=== PATIENT | male | born 1960 | race African-American/Black ===

== ENCOUNTER 2019-08-06 17:13 | Inpatient (IN) | payer OTHER ==
[~2019-08-06] VITALS: Ht 180.3 cm; Wt 107.0 kg
--- NOTE | 2019-08-06 17:20 | NUR ---
BIBA RA 87 "Was taking ride on [employer] and Sponge Maker witnessed full blown Seizure. Patient a/ox1-2, still disoriented at this time, needs attended, kept comfortable, seizure precaution.
[2019-08-06 17:52] LABS: BASOPHILS # (AUTO) 0.1 /CMM (0.0-0.2); BASOPHILS % (AUTO) 1.5 % (0.0-2.0); EOSINOPHILS % (AUTO) 3.2 % (0.0-6.0); HEMATOCRIT 43 % (39-51); HEMOGLOBIN 14.4 g/dL (13.5-17.5); LYMPHOCYTES % (AUTO) 44.5 % (20.0-44.0); MEAN CORPUSCULAR HGB CONC 34 g/dl (31.0-36.0); MEAN CORPUSCULAR VOLUME 89 fL (80-96); MONOCYTES # (AUTO) 0.4 /CMM (0.1-1.30); MONOCYTES % (AUTO) 6.2 % (2.0-12.0); NEUTROPHILS % (AUTO) 44.6 % (43.0-81.0); PLATELET COUNT (AUTO) 207 /CMM (150-450); RED BLOOD CELL COUNT(AUTO) 4.82 MIL/uL (4.5-6.0); WHITE BLOOD COUNT (AUTO) 6.8 K/uL (4.3-11.0)
[2019-08-06 18:25] LABS: PHENYTOIN (DILANTIN) 0.6 ug/ml (10.0-20.0)
[2019-08-06 18:34] LABS: ALANINE AMINOTRANSFERASE 39 U/L (12-78); ALBUMIN 3.6 g/dL (3.4-5.0); ALKALINE PHOSPHATASE 115 U/L (46-116); ASPARTATE AMINOTRANSFERASE 15 U/L (15-37); BILIRUBIN,DIRECT 0.1 mg/dL (0.0-0.2); BILIRUBIN,TOTAL 0.4 mg/dL (0.2-1.0); CARBON DIOXIDE 26 mmol/L (21-32); CHLORIDE 98 mmol/L (98-107); CREATININE 1.5 mg/dL (0.6-1.3); POTASSIUM 3.7 mmol/L (3.5-5.1); SODIUM SERUM 135 mmol/L (136-145); TOTAL PROTEIN, SERUM 7.5 g/dL (6.4-8.2); UREA NITROGEN, BLOOD 17 mg/dL (7-18)
[2019-08-06] MEDS ORDERED: LORAZEPAM INJ 2 MG/ML VIAL ONE (18:34)
--- NOTE | 2019-08-06 18:36 | NUR ---
patient had an approximately 55 seconds of tonic clonic seizure. Patient placed on o2 via mask. Dr. Carlos made aware, received an order for Ativan 2mg IV x1 now and carried out.
[2019-08-06 18:38] LABS: GLUCOSE 630 mg/dL (74-106)
[2019-08-06 18:39] LABS: ALCOHOL, BLOOD < 3 mg/dL (0-0)
--- NOTE | 2019-08-06 18:45 | NUR ---
Patient asleep at this time, kept comfortable, vss, on o2 at 2lpm via nc. Seizure precautions in placed.
[2019-08-06] MEDS ORDERED: phenytoin SODIUM IV 1,000 MG in IV NS 0.9% 100 ML IV ONE (19:00)
[2019-08-06] MEDS ORDERED: INSULIN REGULAR, HUMAN 100 UNIT/ML 10 ML VIAL IV ONE (19:00)
[2019-08-06] MEDS ORDERED: LORAZEPAM INJ 2 MG/ML VIAL IV ONE (19:00)
[2019-08-06] MEDS ORDERED: IV NS 0.9% 1,000 ML BAG IV ONE (19:00)
[2019-08-06] MEDS ORDERED: INSULIN REGULAR, HUMAN 100 UNIT/ML 10 ML VIAL ONE (19:05)
--- NOTE | 2019-08-06 19:17 | NUR ---
CARIDAD MIDDLETON PAGED FOR PANEL
--- NOTE | 2019-08-06 19:22 | NUR ---
SPOKE WITH RAJIV FROM JOURNALISM PROFESSOR, PER CM OK TO ADMIT. NEED TO FAX FACESHEET AND ER NOTES.
--- NOTE | 2019-08-06 19:24 | NUR ---
ENDORSED TO JEAN CLAUDE CORADO FOR VALERIE.
--- NOTE | 2019-08-06 19:47 | NUR ---
CALLED FOR TELE BED
--- NOTE | 2019-08-06 20:47 | NUR ---
REPORT GIVEN TO MAK VALDES FOR VALERIE. PT TO TELE [phone]
--- NOTE | 2019-08-06 20:55 | NUR ---
PT TRANSPORTED TO UNIT ON [facility] RN AND EMT AT BEDSIDE W/ ACLS PROTOCOL. NAD NOTED
[2019-08-06 21:15] VITALS: BP 134/70
--- NOTE | 2019-08-06 21:30 | NUR ---
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 -AT 2114, 59 Y.O., MALE, ADMITTED IN IN-3W BROUGHT IN BY RN AND ANOTHER STAFF, [facility] ON [address], ON RA-94%, DROWSY AND LETHARGIC, ORIENTED TO UNIT AND STAFF, PATIENT IS RESPONDING WHEN NAME IS CALLED, HE CANNOT ANSWER QUESTION CORRECTLY HE LOOKS SLEEPY. IV CANNULA IN RH G#20 INTACT.UPON INTERVIEW PATIENT UNABLE TO PROVIDE CORRECT INFORMATION HE GOES TO SLEEP. 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 KEPT IN SIDE LYING POSITION.ON CLOSE WATCH.
[2019-08-06 22:00] VITALS: BP 134/70
[2019-08-06] MEDS ORDERED: IV NS 0.9% 50 ML IV ONE (22:05)
[2019-08-06] MEDS ORDERED: ACETAMINOPHEN 325 MG TABLET PO PRN (22:30)
[2019-08-06] MEDS ORDERED: LORAZEPAM INJ 2 MG/ML VIAL IV PRN (22:30)
[2019-08-06] MEDS ORDERED: ONDANSETRON HCL/PF 4 MG/2 ML VIAL IVP PRN (22:30)
[2019-08-06] MEDS ORDERED: DEXTROSE 50%-WATER 50 ML DISP.SYRIN IV PRN (22:30)
[2019-08-06] MEDS ORDERED: Z GUARD REMEDY 2 OZ OINT TP PRN (22:30)
[2019-08-06] MEDS: BLOOD SUGAR DIAGNOSTIC 1 EACH STRIP IN SCH (22:49)
[2019-08-06] MEDS: ENOXAPARIN SODIUM 40 MG/0.4 ML DISP.SYRIN SQ SCH (22:50)
--- NOTE | 2019-08-06 22:50 | NUR ---
RN NOTES: BLOOD SUGAR CHECK 282, WILL CONTINUE TO MONITOR FOR SIGN OF HYPER/HYPOGLYCEMIA. DUE MEDS GIVEN ORDERED. Addendum: 08/07/19 at 0514 by REED MUNIZ RN ADDED NOTES: JUAN VELASCO; DELIVERED BY NURSING GROUP BURNER MACHINE.
--- NOTE | 2019-08-06 23:07 | NUR ---
RN NOTES: -YANICK CALLED NOTIFIED ABOUT PATIENT ADMISSION, DR. MIDDLETON CAME AND SEE THE PATIENT , HE IS STILL LOOKING DROWSY AND SLEEPY, LATEST BS-286, AWARE.
[2019-08-06] MEDS: INSULIN REGULAR, HUMAN 100 UNIT/ML 3 ML VIAL SQ PRN (23:16)
[2019-08-07] VITALS: BP 138/71
[2019-08-07] MEDS: INSULIN REGULAR, HUMAN 100 UNIT/ML 3 ML VIAL SQ PRN ×8 (01:19→23:45)
--- NOTE | 2019-08-07 01:21 | NUR ---
RN NOTES: BLOOD SUGAR CHECKED-303, INSULIN GIVEN PER SCALE. CONTINUE TO MONITOR FOR SIGN OF HYPER/HYPOGLYCEMIA.
[2019-08-07] MEDS: BLOOD SUGAR DIAGNOSTIC 1 EACH STRIP IN SCH ×6 (01:24→21:56)
[2019-08-07 04:00] VITALS: BP 138/75
--- NOTE | 2019-08-07 04:13 | NUR ---
RN NOTES: AWAKE IN BETWEEN, ASSISTED WHILE USING URINAL, ADEQUATE URINE OUTPUT, ABLE TO STAND WHILE USING URINAL, ON CLOSE WATCH, SEIZURE PRECAUTION OBSERVED.
--- NOTE | 2019-08-07 05:00 | NUR ---
RN NOTES: BLOOD SUGAR CHECKED-177, BLOOD TEST DONE, MRSA SWAB SPECIMEN TAKEN ON THE LEFT NOSTRIL, SEND ON THE LAB.KEP ON CLOSE WATCH.
[2019-08-07 06:09] LABS: ALBUMIN 3.4 g/dL (3.4-5.0); BILIRUBIN,TOTAL 0.5 mg/dL (0.2-1.0); CALCIUM, SERUM 9.3 mg/dL (8.5-10.1); MAGNESIUM 1.8 mg/dL (1.8-2.4); TOTAL PROTEIN, SERUM 7.4 g/dL (6.4-8.2)
[2019-08-07 06:29] LABS: BASOPHILS # (AUTO) 0.1 /CMM (0.0-0.2); BASOPHILS % (AUTO) 0.8 % (0.0-2.0); EOSINOPHILS % (AUTO) 1.8 % (0.0-6.0); HEMATOCRIT 44 % (39-51); HEMOGLOBIN 15.4 g/dL (13.5-17.5); LYMPHOCYTES # (AUTO) 2.3 /CMM (0.8-4.8); LYMPHOCYTES % (AUTO) 33.2 % (20.0-44.0); MEAN CORPUSCULAR HGB CONC 35 g/dl (31.0-36.0); MEAN CORPUSCULAR VOLUME 87 fL (80-96); MONOCYTES # (AUTO) 0.6 /CMM (0.1-1.30); NEUTROPHILS # (AUTO) 3.7 /CMM (1.8-8.9); NEUTROPHILS % (AUTO) 55.2 % (43.0-81.0); PLATELET COUNT (AUTO) 198 /CMM (150-450); RED BLOOD CELL COUNT(AUTO) 5.11 MIL/uL (4.5-6.0); WHITE BLOOD COUNT (AUTO) 6.8 K/uL (4.3-11.0)
--- NOTE | 2019-08-07 07:26 | NUR ---
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
--- NOTE | 2019-08-07 07:45 | NUR ---
AUXILIARY EQUIPMENT OPERATOR OPENING NOTES RECEIVED PATIENT ON BED ASLEEP BUT EASILY AROUSABLE. A/O X2-3 WITH EPISODES OF CONFUSION, NO SEIZURE ACTIVITY DURING ELECTRICAL ASSISTANT ON FLOOR REPORTED, SIDE RAILS X4 PADDED FOR SEIZURE PRECAUTIONS. CALL LIGHT WITHIN REACHED FOR ASSISTANCE. PT RESPIRATION EVEN AND NON LABORED. ABD SOFT AND NON DISTENDED WITH ACTIVE BOWEL SOUNDS, URINAL ON BEDSIDE. SKIN WARM TO TOUCH AND DRY. PT DENIES PAIN AND DISCOMFORT. TELE MONITOR SHOWS SINUS RHYTHM 90. IV SITE AT RIGHT HAND PATENT IN FLUSHING, NO S/SX OF INFILTRATION. ALL CONCERNS ATTENDED. WILL CONTINUE TO MONITOR CARE.
[2019-08-07] MEDS ORDERED: HYDR-4076 PO (08:17)
[2019-08-07] MEDS ORDERED: INSU100V7 SQ (08:17)
[2019-08-07] MEDS ORDERED: LOSA50TA39 PO (08:17)
[2019-08-07] MEDS ORDERED: ERGO500014 PO (08:17)
[2019-08-07] MEDS ORDERED: SITA1TAB2 PO (08:17)
[2019-08-07] MEDS ORDERED: CYCL5TAB PO (08:17)
[2019-08-07] MEDS ORDERED: INSU100V39 SQ (08:17)
[2019-08-07] MEDS ORDERED: HYDR-4384 PO (08:17)
[2019-08-07] MEDS ORDERED: ASPI-1169 PO (08:17)
[2019-08-07] MEDS ORDERED: NIFE-34 PO (08:17)
[2019-08-07] MEDS ORDERED: GLIP10TA11 PO (08:17)
[2019-08-07 08:54] VITALS: BP 121/69
[2019-08-07] MEDS: PHENYTOIN EXTENDED RELEASE 100 MG CAPSULE PO SCH ×2 (09:11→21:55)
[2019-08-07] MEDS ORDERED: NIFEdipine XL 60 MG TAB PO SCH (12:00)
[2019-08-07] MEDS ORDERED: HYDROCODONE/APAP 5/325MG 1 EACH TABLET PO PRN (12:00)
[2019-08-07] MEDS ORDERED: CYCLOBENZAPRINE 10 MG TABLET PO PRN (12:00)
[2019-08-07] MEDS ORDERED: K PHOS NEUTRAL 250 MG TABLET PO ONE (12:30)
[2019-08-07] MEDS: POTASSIUM CHLORIDE 20 MEQ TAB.PRT.SR PO SCH ×3 (12:42→14:27)
[2019-08-07] MEDS: ASPIRIN 81 MG TAB.CHEW PO SCH (12:42)
[2019-08-07] MEDS: hydrALAZINE HCL 25 MG TABLET PO SCH ×2 (12:43→16:29)
[2019-08-07] MEDS: LOSARTAN POTASSIUM 50 MG TABLET PO SCH (12:43)
--- NOTE | 2019-08-07 14:20 | NUR ---
SENIOR CHEMIST NOTES HIMANSHU VISITED PATIENT, FOR ANY CONCERNS PLEASE CALL AT [phone] REQUESTED. TO CALL HER FOR ANY CHANGE OF CONDITION WELL. TO ENDORSED TO NEXT SHIFT
[2019-08-07] MEDS: CARVEDILOL 6.25 MG TABLET PO SCH ×2 (15:47→21:55)
[2019-08-07 16:00] VITALS: BP 135/81
[2019-08-07] MEDS: glipiZIDE 10 MG TABLET PO SCH (16:29)
[2019-08-07] MEDS: METFORMIN 500 MG TABLET PO SCH (16:29)
--- NOTE | 2019-08-07 18:55 | NUR ---
M/S RN CLOSING NOTES PT A/O X3, RESPONSIVE TO ALL STIMULI. RESPIRATION EVEN AND NON LABORED WITH NO ACUTE RESPIRATORY DISTRESS. ABD SOFT AND NON DISTENDED WITH ACTIVE BOWEL SOUNDS, URINAL ON BEDSIDE. DENIES PAIN AND DISCOMFORT. SKIN WARM TO TOUCH AND DRY. NO NEW OPEN SKIN BREAKDOWN. IV SITE AT RIGHT HAND PATENT IN FLUSHING. CALL LIGHT WITHIN REACHED. NO SEIZURE ACTIVITY DURING THE SHIFT. MAXIMUM BLOOD SUGAR OF 366. CONTINUE TO PROVIDE SEIZURE PRECAUTIONS. ALL CARE ATTENDED. ENDORSED PT CARE TO NEXT SHIFT
--- NOTE | 2019-08-07 19:05 | NUR ---
MS RN NOTES RECEIVED PT IN BED AWAKE AND ABLE TO MAKE NEEDS KNOWN. PT AO X2-3 WITH PERIODS OF CONFUSION. RESPIRATIONS EVEN AND UNLABORED WITH NO S/S OF ACUTE DISTRESS OR SOB NOTED AT THIS TIME. SAFETY MEASURES IN PLACE WITH BED IN LOWEST LOCKED POSITION WITH SIDE RAILS UP X2. CALL LIGHT WITHIN REACH. WILL CONTINUE TO MONITOR.
[2019-08-07 20:00] VITALS: BP 114/74
--- NOTE | 2019-08-07 21:45 | NUR ---
MS RN OPENING NOTES RECEIVED REPORT FROM MAK ROWE. PATIENT SLEEPING IN BED, EASY TO AWAKEN. A/O 2-3. ON ROOM AIR. NO S/S OF ACUTE RESPIRATORY DISTRESS AND NO COMPLAINTS OF PAIN AT THIS TIME. IV PRESENT ON RIGHT ARM, SIZE 20, INTACT & PATENT, HEP LOCKED. PATIENT ABLE TO VERBALIZE NEEDS. BED LOCKED, SIDE RAILS X3 & PADDED FOR SEIZURE PRECAUTION, LOW-RICHEY'S POSITION, CALL LIGHT WITHIN REACH.
[2019-08-07] MEDS: ENOXAPARIN SODIUM 40 MG/0.4 ML DISP.SYRIN SQ SCH (21:56)
[2019-08-07] MEDS ORDERED: INSULIN GLARGINE, 100 UNIT/ML CARTRIDGE SQ SCH (22:00)
--- NOTE | 2019-08-07 22:11 | NUR ---
MS RN NOTES PATIENT BLOOD GLUCOSE 59. PATIENT A/O X2-3. PATIENTS DENIES ANY DIZZINESS AND NO SIGNS OF DIAPHORESIS PRESENT. ORANGE JUICE AND CRACKERS GIVEN TO PATIENT. WILL CONTINUE TO MONITOR AT THE BEDSIDE.
--- NOTE | 2019-08-07 22:30 | NUR ---
MS RN NOTES PATIENTS BLOOD GLUCOSE 82
--- NOTE | 2019-08-07 23:15 | NUR ---
MS RN NOTES PATIENT BLOOD GLUCOSE 122
[2019-08-08] MEDS: BLOOD SUGAR DIAGNOSTIC 1 EACH STRIP IN SCH ×5 (01:19→17:00)
[2019-08-08] MEDS: INSULIN REGULAR, HUMAN 100 UNIT/ML 3 ML VIAL SQ PRN ×3 (01:25→11:51)
[2019-08-08 06:40] LABS: CALCIUM, SERUM 8.6 mg/dL (8.5-10.1); PHOSPHORUS 3.2 mg/dL (2.5-4.9); POTASSIUM 3.6 mmol/L (3.5-5.1)
--- NOTE | 2019-08-08 07:06 | NUR ---
MS RN CLOSING NOTES PATIENT SLEEPING IN BED. A/O X 2-3. ON ROOM AIR. NO COMPLAINTS OF SOB OR PAIN AT THIS TIME. IV PRESENT ON RIGHT HAND, SIZE 20, INTACT & PATENT, HEP LOCKED. BED LOCKED, SIDE RAILS X2 & PADDED FOR SEIZURE PRECAUTION, SEMI-RICHEY'S POSITION, CALL LIGHT WITHIN REACH. WILL ENDORSE TO DAY SHIFT NURSE TO FOLLOW PLAN OF CARE
[2019-08-08 08:00] VITALS: BP 149/84
[2019-08-08] MEDS: glipiZIDE 10 MG TABLET PO SCH ×2 (08:48→17:24)
[2019-08-08] MEDS: CARVEDILOL 6.25 MG TABLET PO SCH (08:48)
[2019-08-08] MEDS: ASPIRIN 81 MG TAB.CHEW PO SCH (08:48)
[2019-08-08] MEDS: hydrALAZINE HCL 25 MG TABLET PO SCH ×3 (08:48→17:24)
[2019-08-08] MEDS: METFORMIN 500 MG TABLET PO SCH ×2 (08:48→17:24)
[2019-08-08] MEDS: LOSARTAN POTASSIUM 50 MG TABLET PO SCH (08:48)
[2019-08-08] MEDS: PHENYTOIN EXTENDED RELEASE 100 MG CAPSULE PO SCH (08:48)
[2019-08-08] MEDS ORDERED: LINAGLIPTIN 5 MG TABLET PO SCH (09:00)
[2019-08-08] MEDS ORDERED: CARV6.252 PO (14:49)
[2019-08-08] MEDS ORDERED: PHEN100C4 PO (14:50)
[2019-08-08 16:00] VITALS: BP 127/77
[2019-08-08 17:24] VITALS: BP 135/66
[2019-08-13] MEDS ORDERED: ERGOCALCIFEROL (VITAMIN D 2) 50,000 UNIT CAPSULE PO SCH (12:00)
== END 2019-08-08 18:30 | disposition home or self-care (01) | DRG 53 ==
LOC: ER 17:20 → TELE 20:50 → MED 08-07 09:36
PROVIDERS: ADMIT Nurse Practitioner Acute Care
DX: G40.909 Epilepsy, unspecified, not intractable, without status epilepticus (principal); N17.0 Acute kidney failure with tubular necrosis; E11.65 Type 2 diabetes mellitus with hyperglycemia; E87.1 Hypo-osmolality and hyponatremia; I10 Essential (primary) hypertension
CPT/HCPCS: 36415; 70450-TC; 71045-TC; 80048-TC; 80053-TC; 80061-TC; 80076-TC; 80185-TC; 82962-TC; 83540-TC; 83735-TC; 84100-TC; 84484-TC; 85025-TC; 87081-TC; A4216; G0378; G0480; J1165; J1650; J1815; J2060; J7030

== ENCOUNTER 2022-10-28 17:22 | Emergency (ER) | payer OTHER ==
[~2022-10-28] VITALS: Ht 188 cm; Wt 91.2 kg
[~2022-10-28 17:22] MED LIST: ASPI-1169 PO; CARV6.252 PO; CYCL5TAB PO; ERGO500093 PO; GLIP10TA11 PO; HYDR-4076 PO; HYDR-4384 PO; INSU100V39 SQ; INSU100V7 SQ; LOSA50TA39 PO; PHEN100C4 PO; SITA1TAB2 PO
--- NOTE | 2022-10-28 18:00 | NUR ---
FRANCIA FROM [facility] FOR AMS. BG ">500" ON SCENE. PLACED IN BED, AAOX3, BREATHING EVEN AND UNLABORED SATURATING 96%RA
--- NOTE | 2022-10-28 18:21 | NUR ---
IV ACCESS ESTABLISHED 20G RIGHT HAND. FLUIDS STARTED ORDERED.
--- NOTE | 2022-10-28 18:25 | NUR ---
COVID SWAB COLLECTED AND SENT TO LAB
[2022-10-28] MEDS ORDERED: IV NS 0.9% 1,000 ML IV ONE ×2 (18:30→22:30)
[2022-10-28 18:41] LABS: BASOPHILS % (AUTO) 0.7 % (0.0-2.0); EOSINOPHILS % (AUTO) 0.4 % (0.0-6.0); HEMATOCRIT 43 % (39-51); HEMOGLOBIN 14.3 g/dL (13.5-17.5); LYMPHOCYTES # (AUTO) 1.1 K/uL (0.8-4.8); LYMPHOCYTES % (AUTO) 26.2 % (20.0-44.0); MEAN CORPUSCULAR HGB CONC 33 g/dl (31.0-36.0); MEAN CORPUSCULAR VOLUME 84 fL (80-96); MONOCYTES # (AUTO) 0.3 K/uL (0.1-1.30); MONOCYTES % (AUTO) 7.8 % (2.0-12.0); NEUTROPHILS # (AUTO) 2.8 K/uL (1.8-8.9); NEUTROPHILS % (AUTO) 64.9 % (43.0-81.0); PLATELET COUNT (AUTO) 204 K/uL (150-450); RED BLOOD CELL COUNT(AUTO) 5.06 MIL/uL (4.5-6.0); WHITE BLOOD COUNT (AUTO) 4.3 K/uL (4.3-11.0)
--- NOTE | 2022-10-28 18:52 | NUR ---
URINE SAMPLE COLLECTED AND SENT TO LAB.
--- NOTE | 2022-10-28 18:53 | NUR ---
PT RETURNED FROM [facility] VIA [facility]
[2022-10-28 19:07] LABS: ALANINE AMINOTRANSFERASE 22 U/L (12-78); ALBUMIN 3.5 g/dL (3.4-5.0); ALKALINE PHOSPHATASE 135 U/L (46-116); ASPARTATE AMINOTRANSFERASE 14 U/L (15-37); BILIRUBIN,DIRECT 0.2 mg/dL (0.0-0.2); BILIRUBIN,TOTAL 0.5 mg/dL (0.2-1.0); CALCIUM, SERUM 9.6 mg/dL (8.5-10.1); CARBON DIOXIDE 25 mmol/L (21-32); CHLORIDE 89 mmol/L (98-107); CREATININE 1.6 mg/dL (0.6-1.3); SODIUM SERUM 123 mmol/L (136-145); TOTAL PROTEIN, SERUM 7.7 g/dL (6.4-8.2); UREA NITROGEN, BLOOD 27 mg/dL (7-18)
[2022-10-28 19:23] LABS: GLUCOSE 705 mg/dL (74-106)
[2022-10-28 19:44] LABS: ALCOHOL, BLOOD < 3 mg/dL (0-0); MAGNESIUM 2.1 mg/dL (1.8-2.4)
[2022-10-28 20:07] LABS: BILIRUBIN,URINE NEGATIVE (NEGATIVE); COLOR,URINE YELLOW (YELLOW); LEUKOCYTE ESTERASE ,URINE 2+ (NEGATIVE); NITRITE, URINE NEGATIVE (NEGATIVE); PH,URINE 5.5 (5.0-8.0); PROTEIN,URINE NEGATIVE (NEGATIVE); UGLUCOSE 3+ mg/dL (NEGATIVE); UROBILINOGEN,URINE 0.2 EU/dL (0.2)
[2022-10-28 20:08] LABS: PHENYTOIN (DILANTIN) 0.7 ug/ml (10.0-20.0)
[2022-10-28 20:17] LABS: BACTERIA,URINE 2+ /HPF (None Seen); WBC,URINE 21-50 /HPF (0-3)
--- NOTE | 2022-10-28 20:53 | NUR ---
CLINICALS RELAYED TO [facility]. PT IS CAPITATED TO [facility]. WILL BE CALLING BACK FOR PEER TO PEER.
--- NOTE | 2022-10-28 21:12 | NUR ---
ACCEPTING DR REDMOND. [facility] [phone]
[2022-10-28] MEDS ORDERED: CEFTRIAXONE 1GM BAG (ER ONLY) 1 GM/50 ML PIGGYBACK IV ONE (22:00)
[2022-10-28] MEDS ORDERED: CEFTRIAXONE 1GM BAG (ER ONLY) 50 ML IV ONE (22:49)
--- NOTE | 2022-10-28 22:59 | NUR ---
DR ARNOLD ON PHONE CALL WITH [facility] ACCEPTED PT
[2022-10-28 23:05] VITALS: BP 137/61
--- NOTE | 2022-10-28 23:46 | NUR ---
REPORT GIVEN TO [facility] CM; AWAITING FOR BED
--- NOTE | 2022-10-29 03:15 | NUR ---
REPORT GIVEN TO [facility]
--- NOTE | 2022-10-29 03:24 | NUR ---
REPORT GIVEN TO EMS, ALONG WITH MOST RECENT VITAL SIGNS.
--- NOTE | 2022-10-29 03:54 | NUR ---
PT TRANSFERRED TO [facility] Patient Tranfers to outside Facility Physician: DR REDMOND
== END 2022-10-29 03:55 | disposition short-term general hospital (02) ==
LOC: ER 17:25
DX: R55 Syncope and collapse (principal); I10 Essential (primary) hypertension; E11.65 Type 2 diabetes mellitus with hyperglycemia; N39.0 Urinary tract infection, site not specified; R41.82 Altered mental status, unspecified; Z79.899 Other long term (current) drug therapy; Z79.4 Long term (current) use of insulin; Z79.82 Long term (current) use of aspirin; Z20.822 Contact with and (suspected) exposure to COVID-19; W17.89XA Other fall from one level to another, initial encounter; Y93.89 Activity, other specified; Y92.522 Railway station as the place of occurrence of the external cause; Y99.8 Other external cause status
CPT/HCPCS: 99291; 96365; 96361; 93005; 71045; 72125; 70450; 85025; 80048; 80185; 82010; 83605; 80076; 83735; 81001; 36415; 84484 ×2; 82962 ×4; 87426; 80320; 80307; J7030 ×2; A4223; J0696; C9803; G0480